=== PATIENT | male | born 1980 | race Caucasian/White ===

== ENCOUNTER 2020-06-27 13:20 | Emergency (ER) | payer BC ==
--- NOTE | 2020-06-27 14:43 | RAD ---
XR Knee Rt 4 View STANDARD History: Injury. Pain Comparison: None. Findings: Moderate lateral compartment degenerative change including flattening the intra-articular s urface as well as osteophyte formation. Small to moderate medial compartment osteophyte formation. Large patellofemoral compartment osteophytes. Small reactive joint effusion. 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
[2020-06-27] MEDS ORDERED: traMADol HCl 50 MG TAB ONE (16:12)
[2020-06-27] MEDS ORDERED: Ibuprofen 800 MG TAB ONE (16:12)
== END 2020-06-27 16:01 | disposition home or self-care (01) ==
LOC: ERS 13:20
DX: M25.561 Pain in right knee (principal); Z79.1 Long term (current) use of non-steroidal anti-inflammatories (NSAID); W19.XXXA Unspecified fall, initial encounter